=== PATIENT | female | born 1955 | race Caucasian/White ===

== ENCOUNTER → 2017-06-01 | Outpatient (CLI) | payer MEDICARE, BC, OTHER ==
--- NOTE | 2017-06-01 11:20 | XR ---
EXAMINATION TYPE: XR chest 2V DATE OF EXAM: 06/01/2017 COMPARISON: NONE HISTORY: Cough TECHNIQUE: Frontal and lateral views of the chest are obtained. FINDINGS: There is no focal air space opacity, pleural effusion, or pneumothorax seen. The cardiac silhouette size is within normal limits. The osseous structures are intact. Mild multilevel degener ative changes of thoracic spine are noted. IMPRESSION: No acute cardiopulmonary process.
== END | disposition home or self-care (01) ==
LOC: RADXRMAIN 10:31
PROVIDERS: ATTEND Family Medicine
DX: R05 Cough (principal); M25.442 Effusion, left hand
CPT/HCPCS: 71046

== ENCOUNTER → 2017-09-16 | Outpatient (CLI) | payer MEDICARE, BC, OTHER | END | disposition home or self-care (01) | LOC: RADMRIMAIN 11:24 | PROVIDERS: ATTEND Family Medicine | DX: Z53.9 Procedure and treatment not carried out, unspecified reason (principal) ==

== ENCOUNTER → 2018-02-17 | Outpatient (CLI) | payer MEDICARE, BC, OTHER ==
--- NOTE | 2018-02-22 19:22 | AS ---
ARTERIAL STUDY The patient had pulse volume recording in both lower extremities. This pulse volume recording has no pressure gradient noted and triphasic signal and normal configuration. Right leg ankle-brachial index posterior tibial is 1.20 and dorsal pedis is 1.12 and pressure on the right is 0.71, left side ankle-brachial index for the posterior tibial is 1.09, dorsal pedis is 1.20 and digital pressure is 0.59. MMODL / IJN: [id number] /
== END | disposition home or self-care (01) ==
LOC: RADUSWWP 12:25
PROVIDERS: ATTEND Family Medicine
DX: I70.213 Atherosclerosis of native arteries of extremities with intermittent claudication, bilateral legs (principal)
CPT/HCPCS: 93922

== ENCOUNTER → 2018-04-30 | Outpatient (CLI) | payer MEDICARE, BC, OTHER ==
[~2018-04-30] MED LIST: REGADENOSON 0.4 MG/5 ML SYRINGE IV ONE
--- NOTE | 2018-04-30 11:08 | ECHOF ---
Referral Reason:R94.31 Abnormal EKG / Dyspenea MEASUREMENTS -------- HEIGHT: 172.7 cm WEIGHT: 137.9 kg BP: IVSd: 1.3 cm (0.6 - 1.1) LVIDd: 4.1 cm (3.9 - 5.3) LVPWd: 1.3 cm (0.6 - 1.1) IVSs: 1.6 cm LVIDs: 2.1 cm LVPWs: 1.6 cm LAESV Index (A-L): 16.89 ml/m Ao Diam: 3.6 cm (2.0 - 3.7) LA Diam: 2.9 cm (2.7 - 3.8) MV E Terry: 0.60 m/s MV DecT: 247 ms MV A Etrry: 0.67 m/s MV E/A Ratio: 0.89 RAP: 5.00 mmHg RVSP: 8.52 mmHg FINDINGS -------- Sinus rhythm. This was a technically difficult study with suboptimal views. The left ventricular size is normal. There is mild concentric left ventricular hypertrophy. Overa ll left ventricular systolic function is normal with, an EF between 55 - 60 %. The RV was not well visualized. Normal LA size by volume 22+/-6 ml/m2. The right atrium is normal in size. The aortic valve was not well visualized. Trace amount of aortic regurgitation. There is no evid ence of aortic stenosis. Mild mitral annular calcification present. Mild mitral regurgitation is present. Mild tricuspid regurgitation present. Right ventricular systolic pressure is normal at < 35 mmHg. The right ventricular systolic pressure, as measured by Doppler, is 8.52mmHg. The pulmonic valve was not well visualized. There is no pulmonic regurgitation present. The aortic root size is normal. Normal inferior vena cava with normal inspiratory collapse consistent with estimated right atrial pre ssure of 5 mmHg. There is no pericardial effusion. CONCLUSIONS -------- 1. Sinus rhythm. 2. This was a technically difficult study with suboptimal views. 3. The left ventricular size is normal. 4. There is mild concentric left ventricular hypertrophy. 5. Overall left ventricular systolic function is normal with, an EF between 55 - 60 %. 6. The RV was not well visualized. 7. Normal LA size by volume 22+/-6 ml/m2. 8. Trace amount of aortic regurgitation. 9. Mild mitral annular calcification present. 10. Mild mitral regurgitation is present. 11. Mild tricuspid regurgitation present. 12. Right ventricular systolic pressure is normal at < 35 mmHg. 13. The pulmonic valve was not well visualized. 14. There is no pulmonic regurgitation present. 15. The aortic root size is normal. 16. There is no pericardial effusion. SHOE STAINER: Layton Manzano RDCS
--- NOTE | 2018-04-30 11:39 | EST ---
EXERCISE STRESS AGE: 62 SEX: F HT: 5'8" WT: 304 PROTOCOL: Lexiscan Cardiolite Stress Test HEART RATE REST: 53 BLOOD PRESSURE REST: 135/71 MAXIMUM HEART RATE ACHIEVED: 72 MAXIMUM BLOOD PRESSURE: 156/65 85% MPHR: 137 100% MPHR: 156 INDICATIONS: Abnormal EKG, dyspnea. CLINICAL INFORMATION: Baseline rhythm is sinus mechanism, normal axis, evidence of inferior wall myocardial infarction. Baseline blood pressure 135/71 mmHg. Patient received an injection of Lexiscan. Electrocardiographic monitoring revealed no evidence of diagnostic ischemic ST deviation. Cardiolite was injected per protocol. CONCLUSION: 1. Nondiagnostic electrocardiograph stress testing. 2. Nuclear images will be reported separately. MMODL / IJN: [id number] /
--- NOTE | 2018-04-30 11:45 | NM ---
EXAMINATION TYPE: NM stress lexiscan cardiolite DATE OF EXAM: 04/30/2018 COMPARISON: NONE HISTORY: Chest pain, abnormal EKG TECHNIQUE: After the intravenous administration of 10.4 mCi Tc 99m Sestamibi - Cardiolite resting SP ECT images acquired 45 minutes post injection. The patient received 0.4mg Lexiscan, 26.1 mCi Tc 99m Sestamibi - Stress images obtained [address] injection FINDINGS: Review of stress and rest SPECT images demonstrates a fixed defect with corresponding wall motion abn ormalities inferior wall myocardium. Gated analysis shows normal wall motion with an estimated left ventricular ejection fraction of 69 %. IMPRESSION: 1. There is a fixed defect involving the inferior wall the myocardium most typical remote infarction. A tiny area of stress-induced reversibility not entirely excluded correlate clinically. 2. Ejection fraction 69%.
--- NOTE | 2018-04-30 12:18 | XR ---
EXAMINATION TYPE: XR chest 2V DATE OF EXAM: 04/30/2018 COMPARISON: 06/01/2017 TECHNIQUE: PA and lateral views submitted. HISTORY: Shortness of breath FINDINGS: The lungs are clear and there is no pneumothorax, pleural effusion, or focal pneumonia. Chronic def ormity of the left rib cage noted. No overt failure. Hypertrophic change of the spine seen. IMPRESSION: 1. No acute process.
== END | disposition home or self-care (01) ==
LOC: RADNMMAIN 08:17
PROVIDERS: ATTEND Family Medicine
DX: I21.9 Acute myocardial infarction, unspecified (principal)
CPT/HCPCS: 93017; 93306; 71046; 78452; A9500; J2785

== ENCOUNTER → 2021-11-15 | Outpatient (CLI) | payer MEDICARE, BC, OTHER ==
[2021-11-15 10:47] LABS: Basophils # (A) 0.02 X 10*3/uL (0.00-0.10); Basophils % (A) 0.4 %; Eosinophils # (A) 0.08 X 10*3/uL (0.04-0.35); Eosinophils % (A) 1.5 %; HCT 42.7 % (37.2-46.3); HGB 13.2 g/dL (12.0-15.0); Immature Grans, Automated 0.2 %; Lymphocytes # (A) 1.76 X 10*3/uL (0.90-5.00); Lymphocytes % (A) 33.3 %; MCH 28.7 pg (27.0-32.0); MCHC 30.9 g/dL (32.0-37.0); MCV 92.8 fL (80.0-97.0); Mean Platelet Volume 10.2 fL (9.5-12.2); Monocytes # (A) 0.34 X 10*3/uL (0.20-1.00); Monocytes % (A) 6.4 %; NRBC Per 100 WBC 0 /100 WBCS (0.0-0.0); Neutrophils # (A) 3.07 X 10*3/uL (1.80-7.70); Neutrophils % (A) 58.2 %; Platelet Count 213 X 10*3/uL (140-440); RDW 13.9 % (11.5-14.5); WBC 5.28 X 10*3/uL (4.50-10.00)
[2021-11-15 11:09] LABS: ALT 28 U/L (8-44); AST 27 U/L (13-35); African American GFR (CKD) 108.5 (60.0-200.0); Albumin 4.2 g/dL (3.8-4.9); Albumin/Globulin Ratio 1.91 (1.60-3.17); Alkaline Phosphatase 157 U/L (41-126); BUN/Creat Ratio 23.67 Ratio (12.00-20.00); Blood Urea Nitrogen 14.2 mg/dL (9.0-27.0); Calcium 9.3 mg/dL (8.7-10.3); Carbon Dioxide 26.2 mmol/L (20.0-27.5); Chloride 107 mmol/L (96-109); Chol/HDL Ratio 2.53 Ratio; Globulin 2.2 g/dL (1.6-3.3); Glucose 108 mg/dL (70-110); LDL Cholesterol,Calculated 104.5 mg/dL (0.0-131.0); Non-African American GFR(CKD) 93.7 (60.0-200.0); Potassium 4.1 mmol/L (3.5-5.5); Sodium 143 mmol/L (135-145); Total Protein 6.4 g/dL (6.2-8.2); VLDL Calculation 11.58 mg/dL (5.00-40.00)
== END | disposition home or self-care (01) ==
LOC: LABWHC1 07:09
DX: K91.2 Postsurgical malabsorption, not elsewhere classified (principal)
CPT/HCPCS: 36415; 80053; 80061; 82306; 82607; 82728; 83970; 84425; 84590; 85025

== ENCOUNTER → 2023-01-06 | Outpatient (CLI) | payer MEDICARE, OTHER ==
--- NOTE | 2023-01-06 13:25 | CT ---
EXAMINATION TYPE: CT lumbar spine wo con CT DLP: 861 mGycm, Automated exposure control for dose reduction was used. DATE OF EXAM: 01/06/2023 12:43 PM COMPARISON: MRI 12/01/2022. CLINICAL INDICATION:Female, 67 years old with history of [id number] DISC DEGENERATION, LUMBAR REGION; PHH, Disc degeneration, lumbar region; Adjacent segment disease TECHNIQUE: Multiple axial images were obtained from the midportion of T11 through the sacroiliac vianca nts. Soft tissue and bone windows in coronal and sagittal planes were obtained and reviewed. Contrast used: mL of , none. Oral contrast used: none. FINDINGS: Alignment: There are 5 lumbar type vertebral bodies within normal alignment. Bone: No evidence of fracture is identified. Surgical changes to L3-L5. Hardware appears intact. Dis cectomy at L4-L5. Multilevel degeneration changes of the spine with osteophyte formation disc space n arrowing and facet joint arthropathy. Discs: There is at least mild neural foraminal stenosis throughout the visualized spine. No evidence for high-grade stenosis given limitations of the exam with streak artifact. The spinal canal within t he limitations exam appears patent. Other: Staghorn calculus on the right. IMPRESSION: Limited exam secondary to streak artifact from fixation hardware. 1. No evidence for spinal fracture or high-grade neural foraminal or spinal canal stenosis. 2. Postsurgical changes to the spine. Hardware appears intact. 3. Right staghorn calculus.
== END | disposition home or self-care (01) ==
LOC: RADCTMAIN 11:05
PROVIDERS: ATTEND Orthopaedic Surgery
DX: M51.36 Other intervertebral disc degeneration, lumbar region (principal); N20.0 Calculus of kidney
CPT/HCPCS: 72131

== ENCOUNTER → 2023-02-07 | Outpatient (CLI) | payer MEDICARE, OTHER ==
--- NOTE | 2023-02-07 15:46 | MR ---
EXAMINATION TYPE: MR cspine/tspine wo con DATE OF EXAM: 02/07/2023 COMPARISON: NONE HISTORY: Work injury is, weakness in shira UE. Difficulty moving neck. Cervical disc disorder with myel opathy TECHNIQUE: Multiplanar, multisequence imaging of cervical and thoracic spine are performed without co ntrast C-SPINE: FINDINGS: There is levoconvex scoliosis centered in the upper thoracic spine Sagittal images of the c ervical spine show the craniocervical junction to appear within normal limits. The cervical and uppe r thoracic spinal cord is normal in caliber and signal. The vertebral body heights are normal. There is moderate multilevel spurring. There is mild to moderate multilevel disc space narrowing greatest a t C6-C7 level. The bone marrow signal intensity is within normal limits. Axial images at C2-C3 level show left-sided uncovertebral facet degenerative change causing moderate left-sided neural foraminal narrowing. Axial images at C3-C4 level a left-sided uncovertebral facet degenerative change causing pipm-ox-cija rate left-sided neural foraminal narrowing. Axial images at C4-C5 level shows some uncovertebral facet degenerative change bilaterally causing mi ld right and moderate left-sided neural foraminal narrowing. Axial images C5-C6 through C7-T1 levels are grossly within normal limits. No large disc herniation is present. IMPRESSION: Scoliosis and multilevel degenerative change in the cervical spine as detailed above. T-SPINE: Spinal cord shows normal course, caliber, and signal as it courses the thoracic spine. Vertebral bod y heights and alignment are satisfactory on sagittal images. Posterior disc herniation at T2-T3 level effaces the anterior thecal sac sagittal image 11 and left paracentral aspect axial image 14. Bone marrow signal intensity is preserved. Review of the axial images shows no additional significant spinal canal stenosis or significant neura l foraminal narrowing at any thoracic level. The visualized thorax is unremarkable. There is suggest ion of small right adrenal mass axial image 2 measuring 2.[address] or MRI follow-up is advised if this is not known finding to further evaluate to rule out malignant etiology. IMPRESSION: As above.
== END | disposition home or self-care (01) ==
LOC: RADMRIMAIN 13:47
PROVIDERS: ATTEND Orthopaedic Surgery
DX: M50.023 Cervical disc disorder at C6-C7 level with myelopathy (principal); M50.01 Cervical disc disorder with myelopathy, high cervical region; M50.021 Cervical disc disorder at C4-C5 level with myelopathy; M41.83 Other forms of scoliosis, cervicothoracic region
CPT/HCPCS: 72141; 72146

== ENCOUNTER → 2023-06-12 | Outpatient (CLI) | payer MEDICARE, OTHER ==
[2023-06-12 11:48] LABS: Basophils # (A) 0.02 X 10*3/uL (0.00-0.10); Basophils % (A) 0.4 %; Eosinophils # (A) 0.07 X 10*3/uL (0.04-0.35); Eosinophils % (A) 1.5 %; HCT 38.8 % (37.2-46.3); HGB 11.9 g/dL (12.0-15.0); Lymphocytes # (A) 1.56 X 10*3/uL (0.90-5.00); Lymphocytes % (A) 34.1 %; MCH 27.1 pg (27.0-32.0); MCHC 30.7 g/dL (32.0-37.0); MCV 88.4 FL (80.0-97.0); Mean Platelet Volume 9.9 FL (9.5-12.2); Monocytes # (A) 0.29 X 10*3/uL (0.20-1.00); Monocytes % (A) 6.3 %; NRBC Per 100 WBC 0 X 10*3/uL (0.00-0.01); Neutrophils # (A) 2.63 X 10*3/uL (1.80-7.70); Neutrophils % (A) 57.5 %; Platelet Count 220 X 10*3/uL (140-440); RBC 4.39 X 10*6/uL (4.10-5.20); RDW 14.7 % (11.5-14.5); WBC 4.58 X 10*3/uL (4.50-10.00)
[2023-06-12 13:57] LABS: Blood Urea Nitrogen 15.9 mg/dL (9.0-27.0); Calcium 9.3 mg/dL (8.7-10.3); Carbon Dioxide 26.1 mmol/L (21.6-31.8); Chloride 106 mmol/L (96-109); Glucose 96 mg/dL (70-110); Potassium 4.4 mmol/L (3.5-5.5); Sodium 143 mmol/L (135-145)
== END | disposition home or self-care (01) ==
LOC: LABWHC1 07:47
PROVIDERS: ATTEND Urology
DX: Z01.812 Encounter for preprocedural laboratory examination (principal)
CPT/HCPCS: 36415; 80048; 85025

== ENCOUNTER → 2023-08-25 | Outpatient (CLI) | payer MEDICARE, OTHER ==
--- NOTE | 2023-08-25 15:31 | XR ---
EXAMINATION TYPE: XR thoracic spine 2V DATE OF EXAM: 08/25/2023 3:25 PM CLINICAL INDICATION:Female, 68 years old with history of S22.000A WEDGE COMPRESSION FRACTURE OF UNSP THORAC; [facility] COMPARISON: 02/07/2023. TECHNIQUE: XR thoracic spine 2V views of the spine in Frontal and lateral projections. FINDINGS: No evidence of acute fracture. There is scattered multilevel disk space narrowing without loss of ve rtebral body height. There is normal alignment of the thoracic vertebral bodies. Scattered osteophyte formation along the anterior and lateral aspects of the vertebral bodies. Neural foramen are patent given limitations of this exam. Spinal canal appears patent. IMPRESSION: 1. No acute osseous pathology. 2. Mild to moderate degeneration changes throughout the thoracic spine.
== END | disposition home or self-care (01) ==
LOC: RADXRMAIN 14:55
PROVIDERS: ATTEND Family Medicine
DX: M47.814 Spondylosis without myelopathy or radiculopathy, thoracic region (principal); S22.000A Wedge compression fracture of unspecified thoracic vertebra, initial encounter for closed fracture; X58.XXXA Exposure to other specified factors, initial encounter
CPT/HCPCS: 72070

== ENCOUNTER → 2024-03-02 | Outpatient (CLI) | payer MEDICARE, OTHER ==
[2024-03-02 15:14] LABS: Basophils # (A) 0.04 X 10*3/uL (0.00-0.10); Basophils % (A) 0.8 %; Eosinophils # (A) 0.09 X 10*3/uL (0.04-0.35); Eosinophils % (A) 1.7 %; HCT 42.8 % (37.2-46.3); Lymphocytes # (A) 1.86 X 10*3/uL (0.90-5.00); Lymphocytes % (A) 35.7 %; MCH 27.7 pg (27.0-32.0); MCHC 30.4 g/dL (32.0-37.0); MCV 91.1 FL (80.0-97.0); Mean Platelet Volume 9.7 FL (9.5-12.2); Monocytes # (A) 0.31 X 10*3/uL (0.20-1.00); NRBC Per 100 WBC 0 X 10*3/uL (0.00-0.01); Neutrophils % (A) 55.6 %; Platelet Count 204 X 10*3/uL (140-440); RDW 18.5 % (11.5-14.5); WBC 5.21 X 10*3/uL (4.50-10.00)
[2024-03-02 15:51] LABS: % Iron Saturation 16.83 (12.00-45.00); Blood Urea Nitrogen 20.3 mg/dL (9.0-27.0); Ferritin 22.3 ng/mL (10.0-291.0); Iron 69 UG/DL (50-170); Total Iron Binding Capacity 410 UG/DL (228-460)
== END | disposition home or self-care (01) ==
LOC: LABWHC1 08:33
PROVIDERS: ATTEND Family Medicine
CPT/HCPCS: 36415; 82565; 82728; 82746; 83540; 83550; 84520; 85025

== ENCOUNTER → 2024-07-21 | Outpatient (CLI) | payer MEDICARE, OTHER ==
[2024-07-21 11:56] LABS: Influenza A Detected (Not Detectd); Influenza B Not Detected (Not Detectd); RSV Not Detected (Not Detectd)
== END | disposition home or self-care (01) ==
LOC: LABWHC1 10:03
PROVIDERS: ATTEND Family Medicine
DX: B89 Unspecified parasitic disease (principal)
CPT/HCPCS: 87636